=== PATIENT | female | born 2000 | race Caucasian/White ===

== ENCOUNTER 2023-02-17 12:32 | Inpatient (IN) | payer SELFPAY ==
[~2023-02-17 12:32] MED LIST: Iopamidol-370 76% 500 ML MDV (1 ML CHARGE) ONE
[2023-02-17] MEDS ORDERED: Ketorolac Tromethamine 30 MG/ML VIAL ONE (14:21)
[2023-02-17 14:46] LABS: #Eosinphils 0.1 thou/uL (0.0-0.7); #Monocytes 0.6 thou/uL (0.11-0.59); #Neutrophils 4.5 thou/uL (1.40-6.50); %Basophils 0.5 % (0.0-1.0); %Eosinophils 1.7 % (0.0-10.0); %Monocytes 9.7 % (0.0-10.0); %Neutrophils 67.8 % (42.0-75.0); Hematocrit 36.8 % (36.0-47.0); Hemoglobin 11.5 g/dL (12.0-16.0); Mean Corpuscular HGB CONC 31.3 g/dL (32.0-36.0); Mean Corpuscular Hemoglobin 27.1 pg (27.0-31.0); Mean Corpuscular Volume 86.8 fl (78.0-98.0); Mean Platelet Volume 9.3 fL (7.4-10.4); Platelet Count 210 10x3/uL (130-400); Red Blood Cell (RBC) Count 4.24 mill/uL (4.20-5.40); White Blood Cell (WBC) Count 6.6 10x3/uL (4.8-10.8)
[2023-02-17 14:55] LABS: BHCG - Serum Negative (NEGATIVE); Pregs Control Background? CLEAR/WHITE (CLR/WHITE); Pregs Control Bar Appear? YES (CONTROL BAR)
[2023-02-17 14:58] LABS: Bacteria/HPF None Seen HPF (None Seen); Bilirubin Negative (Negative); Blood, Urine Negative (Negative); CAUTI Indications for Culture Dysuria,urgency,freq; Clarity Clear (Clear); Glucose, Urine (Dipstick) Normal (Negative); Ketone, Urine Negative (Negative); Leukocyte Negative Leu/uL (Negative); Nitrite Negative (Negative); Protein, Urine (Dipstick) Negative (Neg-Trace); RBC/HPF 0-3 HPF (0-3); Specific Gravity, Urine 1.011 (1.002-1.036); Squamous Epithelial None Seen HPF (0-3); WBC/HPF 0-3 HPF (0-3)
[2023-02-17 15:06] LABS: Urine Culture Reflex No No
[2023-02-17 15:15] LABS: ALT (SGPT) 13 U/L (8-55); AST (SGOT) 12 U/L (5-34); Albumin 4.4 g/dL (3.5-5.0); Alkaline Phosphatase 85 U/L (40-110); Anion Gap 14 mmol/L (10-20); BUN (Urea Nitrogen) 10 mg/dL (7.0-18.7); Bilirubin, Total 0.7 mg/dL (0.2-1.2); Calc. Creatinine Clearance 0 mL/min (70-130); Calcium 9.3 mg/dL (7.8-10.44); Carbon Dioxide 25 mmol/L (22-29); Chloride 105 mmol/L (98-107); Estimated GFR 98; Globulin 3.8 g/dL (2.4-3.5); Glucose 83 mg/dL (70-105); Lipase 35 U/L (8-78); Protein, Total 8.2 g/dL (6.0-8.3); Sodium 140 mmol/L (136-145)
[2023-02-17 17:59] LABS: Amphetamine Not Detected (NotDetected); Barbiturates Screen Not Detected (NotDetected); Benzodiazepine Screen Not Detected (NotDetected); Cocaine Metabolite Screen Not Detected (NotDetected); Methadone Not Detected (NotDetected); Methamphetamine Not Detected (NotDetected); Opiate Screen Not Detected (NotDetected); Oxycodone Screen Not Detected (NotDetected); Phencyclidine (PCP) Not Detected (NotDetected); THC/Cannabinoid Screen Not Detected (NotDetected); Tricyclic Screen Not Detected (NotDetected)
[2023-02-17] MEDS ORDERED: Senokot S 8.6-50 MG TAB PO PRN (19:01)
[2023-02-17] MEDS ORDERED: Ondansetron ODT 4 MG TAB PO PRN (19:01)
[2023-02-17] MEDS ORDERED: Ondansetron PF 4 MG/2 ML Vial IVP PRN (19:01)
[2023-02-17 21:25] VITALS: BMI 33.0
[2023-02-17] MEDS: Sodium Chloride 0.9% 1,000 ML IV SCH (21:26)
[2023-02-17] MEDS: Tamsulosin HCl 0.4 MG CAP PO SCH (21:26)
[2023-02-17] MEDS: Morphine 2 MG/ML VIAL SLOW IVP PRN (22:00)
[2023-02-18 05:18] LABS: #Eosinphils 0.1 thou/uL (0.0-0.7); #Monocytes 0.5 thou/uL (0.11-0.59); #Neutrophils 3.2 thou/uL (1.40-6.50); %Basophils 0.6 % (0.0-1.0); %Eosinophils 1.6 % (0.0-10.0); %Lymphocytes 24.4 % (21.0-51.0); %Monocytes 9.8 % (0.0-10.0); %Neutrophils 63.4 % (42.0-75.0); Hematocrit 33.6 % (36.0-47.0); Hemoglobin 10.4 g/dL (12.0-16.0); Mean Corpuscular Hemoglobin 27.1 pg (27.0-31.0); Mean Corpuscular Volume 87.5 fl (78.0-98.0); Mean Platelet Volume 9.3 fL (7.4-10.4); Platelet Count 185 10x3/uL (130-400); RBC Distribution Width 13.9 % (11.5-14.5); Red Blood Cell (RBC) Count 3.84 mill/uL (4.20-5.40)
[2023-02-18] MEDS: Morphine 2 MG/ML VIAL SLOW IVP PRN (05:26)
[2023-02-18] MEDS: Sodium Chloride 0.9% 1,000 ML IV SCH ×2 (05:38→14:32)
[2023-02-18 06:34] LABS: Anion Gap 13 mmol/L (10-20); BUN (Urea Nitrogen) 9 mg/dL (7.0-18.7); Calc. Creatinine Clearance 194 mL/min (70-130); Calcium 8.4 mg/dL (7.8-10.44); Carbon Dioxide 21 mmol/L (22-29); Chloride 109 mmol/L (98-107); Estimated GFR 115; Glucose 91 mg/dL (70-105); Potassium 3.9 mmol/L (3.5-5.1); Sodium 139 mmol/L (136-145)
[2023-02-18] MEDS ORDERED: FLU VACC QS2023-24(6MOS UP)/PF 60 MCG/0.5 ML SYRINGE IM ONE (09:00)
[2023-02-18] MEDS: Acetaminophen 325 MG TAB PO PRN ×3 (09:29→22:50)
[2023-02-18] MEDS: Tamsulosin HCl 0.4 MG CAP PO SCH (22:50)
[2023-02-19] MEDS: Sodium Chloride 0.9% 1,000 ML IV SCH ×3 (00:19→20:08)
[2023-02-19] MEDS: Acetaminophen 325 MG TAB PO PRN ×2 (13:20→18:26)
[2023-02-19] MEDS ORDERED: Magnevist 469MG/ML 20 ML VIAL ONE (14:02)
[2023-02-19] MEDS: Tamsulosin HCl 0.4 MG CAP PO SCH (20:01)
[2023-02-19] MEDS ORDERED: Senokot S 8.6-50 MG TAB PO SCH (22:30)
[2023-02-20] MEDS: Sodium Chloride 0.9% 1,000 ML IV SCH (03:51)
[2023-02-20] MEDS: Acetaminophen 325 MG TAB PO PRN (06:00)
[2023-02-20] MEDS ORDERED: Senokot S 8.6-50 MG TAB PO SCH (09:00)
[2023-02-20] MEDS ORDERED: Polyethylene Glycol 3350 17 GM Packet PO SCH (09:00)
[2023-02-20 16:05] VITALS: BP 124/72; TEMP 98
== END 2023-02-20 16:30 | disposition home or self-care (01) | DRG 696 ==
LOC: ERS 12:32 → SURG B 18:45 → OBSVTOIN 02-19 08:16
PROVIDERS: ADMIT Family Medicine; ATTEND Internal Medicine
PROC: 0T9B70Z Drainage of Bladder with Drainage Device, Via Natural or Artificial Opening (ICD-10-PCS; principal; 2023-02-17)
DX: R33.9 Retention of urine, unspecified (principal); M17.0 Bilateral primary osteoarthritis of knee; M54.50 Low back pain, unspecified; K59.00 Constipation, unspecified; F17.290 Nicotine dependence, other tobacco product, uncomplicated
CPT/HCPCS: 36416; 70553; 72146; 72148; 74177; 80048; 80053; 80306; 81001; 83690; 84703; 85025; 86140; 87480; 87510; 87660; A9579; J1885; J2272; J7050; Q9967